=== PATIENT | female | born 1940 | race Caucasian/White ===

== ENCOUNTER 2020-08-13 15:04 | Emergency (ER) | payer OTHER ==
[~2020-08-13] VITALS: Ht 149.9 cm; Wt 81.6 kg
[2020-08-13 15:14] VITALS: BP_SYST 168
[2020-08-13 17:07] LABS: BASOPHILS % (AUTO) 0.4 % (0.0-2.0); EOSINOPHILS # (AUTO) 0.1 K/uL (0.0-0.4); EOSINOPHILS % (AUTO) 1.5 % (0.0-4.0); HEMOGLOBIN 11.7 g/dL (12.0-16.0); LYMPHOCYTES # (AUTO) 2.7 K/uL (1.0-5.5); LYMPHOCYTES % (AUTO) 37.4 % (20.5-51.5); MEAN CORPUSCULAR HEMOGLOBIN 32 pg (27-31); MEAN CORPUSCULAR HGB CONC 35 % (32-36); MEAN CORPUSCULAR VOLUME 93 fL (79.0-98.0); MONOCYTES # (AUTO) 0.6 K/uL (0.0-1.0); MONOCYTES % (AUTO) 8.4 % (1.7-9.3); NEUTROPHILS # (AUTO) 3.8 K/uL (1.8-7.7); NEUTROPHILS % (AUTO) 52.3 % (40.0-70.0); PLATELET COUNT (AUTO) 203 K/uL (130-430); RED BLOOD CELL COUNT(AUTO) 3.67 MIL/uL (4.2-6.2); RED CELL DISTRIBUTION WIDTH 13.4 % (9.0-15.0); WHITE BLOOD COUNT (AUTO) 7.2 K/uL (4.8-10.8)
[2020-08-13 17:18] LABS: ANION GAP 8 (5-15); CALCIUM 7.6 mg/dL (8.4-11.0); CHLORIDE 99 mmol/L (98-107); GLUCOSE 123 mg/dL (70-99); POTASSIUM 3.4 mmol/L (3.5-5.1); SODIUM SERUM 135 mmol/L (136-145); UREA NITROGEN, BLOOD 14 mg/dL (8-21)
[2020-08-13 17:20] LABS: PROTHROMBIN TIME 10.4 SECS (9.5-12.5)
[2020-08-13] MEDS ORDERED: IOHEXOL 350 mgI/mL, 150 ML INFUS..BTL IV ONE (17:29)
[2020-08-13 17:44] LABS: ALANINE AMINOTRANSFERASE 31 U/L (12-78); ASPARTATE AMINOTRANSFERASE 35 U/L (10-37); TOTAL BILIRUBIN 0.6 mg/dL (0.0-1.0)
[2020-08-13] MEDS ORDERED: LOVA20TA2 PO (17:52)
[2020-08-13] MEDS ORDERED: DEXTROMETHORPHAN PO (17:52)
[2020-08-13] MEDS ORDERED: BROMPHENIRAMINE PO (17:52)
[2020-08-13] MEDS ORDERED: MULT1CAP34 PO (17:52)
[2020-08-13] MEDS ORDERED: HYDC2.5% (17:52)
[2020-08-13] MEDS ORDERED: LATA7.5D BOTH EYES (17:52)
[2020-08-13] MEDS ORDERED: METF1000 PO (17:52)
[2020-08-13] MEDS ORDERED: GLIP10TA21 PO (17:52)
[2020-08-13] MEDS ORDERED: PSEUDOEPHEDRINE PO (17:52)
[2020-08-13] MEDS ORDERED: ACYC800T5 PO (17:52)
[2020-08-13] MEDS ORDERED: NAPR-690 PO (17:52)
[2020-08-13] MEDS ORDERED: BIOT10004 PO (17:52)
[2020-08-13] MEDS ORDERED: CHOL100038 (17:52)
[2020-08-13] MEDS ORDERED: GABA300T25 PO (17:52)
[2020-08-13] MEDS ORDERED: HYDR50TA4 PO (17:52)
[2020-08-13] MEDS ORDERED: DICL100G19 (17:52)
[2020-08-13] MEDS ORDERED: ATEN100T PO (17:52)
[2020-08-13] MEDS ORDERED: ASPI-1077 PO (17:52)
[2020-08-13] MEDS ORDERED: BENA40TA8 PO (17:52)
[2020-08-13] MEDS ORDERED: IBUP-1969 PO (17:52)
[2020-08-13] MEDS ORDERED: TRIAMCINOLONE (17:52)
[2020-08-13] MEDS ORDERED: hydrALAZINE HCL 20 MG/ML VIAL IVP ONE (19:00)
[2020-08-13] MEDS ORDERED: NS 500 ML IV ONE (20:30)
[2020-08-13 21:39] LABS: BILIRUBIN,URINE NEGATIVE (NEGATIVE); BLOOD, URINE NEGATIVE (NEGATIVE); CLARITY/URINE CLEAR (CLEAR); COLOR,URINE YELLOW (YELLOW); GLUCOSE,URINE NEGATIVE (NEGATIVE); KETONES,URINE NEGATIVE (NEGATIVE); LEUKOCYTE ESTERASE ,URINE NEGATIVE (NEGATIVE); NITRITE, URINE NEGATIVE (NEGATIVE); PROTEIN URINE NEGATIVE (NEGATIVE); UROBILINOGEN,URINE 0.2 (0.2-1.0)
[2020-08-14 01:30] VITALS: BP_SYST 162
[2020-08-14] MEDS ORDERED: hydrALAZINE HCL 20 MG/ML VIAL ONE (01:55)
[2020-08-14] MEDS ORDERED: hydrALAZINE HCL 20 MG/ML VIAL IVP ONE (02:00)
== END 2020-08-14 01:30 | disposition short-term general hospital (02) ==
LOC: SED 15:04
DX: G62.9 Polyneuropathy, unspecified (principal); I10 Essential (primary) hypertension; E11.9 Type 2 diabetes mellitus without complications; Z79.899 Other long term (current) drug therapy; Z88.0 Allergy status to penicillin; Z88.6 Allergy status to analgesic agent; Z88.8 Allergy status to other drugs, medicaments and biological substances; Z20.822 Contact with and (suspected) exposure to COVID-19
CPT/HCPCS: 36415; 70450; 70496; 71045; 76376; 80053; 81003; 82962; 84484; 85025; 85610; 85730; 86886; 86900; 86901; 87426; 93005; 96374; 99291; J0360 ×2; J7040; Q9967

== ENCOUNTER 2022-08-09 18:12 | Inpatient (IN) | payer OTHER, MEDICAID ==
[~2022-08-09] VITALS: Ht 152.4 cm; Wt 80.7 kg
[~2022-08-09 18:12] MED LIST: ACYC800T5 PO; ASPI-1077 PO; ATEN100T PO; BENA40TA89 PO; BIOT10004 PO; BROMPHENIRAMINE PO; CHOL100038; DEXTROMETHORPHAN PO; DICL100G19; GABA300T25 PO; GLIP10TA21 PO; HYDC2.5%; HYDR50TA4 PO; IBUP-1969 PO; LATA7.5D BOTH EYES; LOVA20TA2 PO; METF1000 PO; MULT1CAP34 PO; NAPR-690 PO; PSEUDOEPHEDRINE PO; TRIAMCINOLONE
[2022-08-09 18:13] VITALS: BP_SYST 214
[2022-08-09] MEDS ORDERED: NS 500 ML IV ONE (18:30)
[2022-08-09 18:55] LABS: BASOPHILS % (AUTO) 0.1 % (0.0-2.0); EOSINOPHILS % (AUTO) 0.1 % (0.0-4.0); HEMATOCRIT 38.9 % (36-48); HEMOGLOBIN 13.4 g/dL (12.0-16.0); LYMPHOCYTES % (AUTO) 12.6 % (20.5-51.5); MEAN CORPUSCULAR HEMOGLOBIN 33 pg (27-31); MEAN CORPUSCULAR HGB CONC 34 % (32-36); MEAN CORPUSCULAR VOLUME 95 fL (79.0-98.0); MONOCYTES # (AUTO) 0.4 K/uL (0.0-1.0); MONOCYTES % (AUTO) 5.4 % (1.7-9.3); NEUTROPHILS # (AUTO) 6.5 K/uL (1.8-7.7); NEUTROPHILS % (AUTO) 81.8 % (40.0-70.0); PLATELET COUNT (AUTO) 182 K/uL (130-430); RED BLOOD CELL COUNT(AUTO) 4.09 MIL/uL (4.2-6.2)
[2022-08-09 19:14] LABS: ALANINE AMINOTRANSFERASE 28 U/L (12-78); ALBUMIN 3.3 g/dL (3.4-4.8); ANION GAP 12 (5-15); ASPARTATE AMINOTRANSFERASE 35 U/L (10-37); CALCIUM 7.9 mg/dL (8.4-11.0); CHLORIDE 97 mmol/L (98-107); CREATININE 1.57 mg/dL (0.55-1.30); GLUCOSE 193 mg/dL (70-99); TOTAL BILIRUBIN 1.1 mg/dL (0.0-1.0); UREA NITROGEN, BLOOD 18 mg/dL (8-21)
[2022-08-09 19:16] LABS: ALCOHOL, BLOOD 4 mg/dL (<10)
[2022-08-09] MEDS ORDERED: ASPIRIN 81 MG TAB.CHEW PO ONE (20:15)
[2022-08-09] MEDS ORDERED: VIBE75TA PO (21:28)
[2022-08-09] MEDS ORDERED: CARB30DR14 BOTH EYES (21:28)
[2022-08-09] MEDS ORDERED: CALCIUM CARBONATE PO (21:28)
[2022-08-09] MEDS ORDERED: CICL90CR10 TP (21:28)
[2022-08-09] MEDS ORDERED: CYAN100010 SL (21:28)
[2022-08-09] MEDS ORDERED: ALLO100T PO (21:28)
[2022-08-09] MEDS ORDERED: MIRT-91 PO (21:28)
[2022-08-09] MEDS ORDERED: POTA-197 PO (21:28)
[2022-08-09] MEDS ORDERED: ACET-2634 PO (21:28)
[2022-08-09] MEDS ORDERED: LABETALOL HCL 20 MG/4 ML CARTRIDGE IVP ONE (21:30)
[2022-08-09] MEDS ORDERED: DEXTROSE 50% JECT 50 ML DISP.SYRIN IVP PRN (21:45)
[2022-08-09] MEDS ORDERED: MUPIROCIN 2% TOPICAL OINTMENT 22 GM NS PRN (21:45)
[2022-08-09] MEDS ORDERED: DOCUSATE SODIUM 100 MG CAPSULE PO PRN (21:45)
[2022-08-09] MEDS ORDERED: MORPHINE 2 MG/ML INJ. SYRINGE IVP PRN ×2 (21:45)
[2022-08-09] MEDS ORDERED: ONDANSETRON HCL 4 MG/2 ML VIAL IVP PRN (21:45)
[2022-08-09] MEDS ORDERED: ACETAMINOPHEN 325 MG TABLET PO PRN (21:45)
[2022-08-09] MEDS ORDERED: POTASSIUM CHLORIDE 20 MEQ TAB.PRT.SR PO PRN (21:45)
[2022-08-09 22:28] LABS: BILIRUBIN,URINE NEGATIVE (NEGATIVE); BLOOD, URINE 1+ (NEGATIVE); COLOR,URINE YELLOW (YELLOW); GLUCOSE,URINE 1+ (NEGATIVE); KETONES,URINE 1+ (NEGATIVE); LEUKOCYTE ESTERASE ,URINE TRACE (NEGATIVE); NITRITE, URINE NEGATIVE (NEGATIVE); PROTEIN URINE 2+ (NEGATIVE); UROBILINOGEN,URINE 0.2 (0.2-1.0)
[2022-08-09 22:34] LABS: CLARITY/URINE SLIGHTLY HAZY (CLEAR)
[2022-08-09 22:49] LABS: BACTERIA,URINE MODERATE /HPF (None Seen)
[2022-08-09 22:50] LABS: MUCUS,URINE None Seen /LPF (None Seen); YEAST,URINE Moderate /HPF (None Seen)
[2022-08-09 23:34] LABS: BARBITURATE, URINE NEGATIVE (NEG <=200); BENZODIAZEPINE, URINE NEGATIVE (NEG <=150); CANNABINOID, URINE NEGATIVE (NEG <=50); COCAINE, URINE NEGATIVE (NEG <=150); METHAMPHETAMINES SCREEN,URINE NEGATIVE (NEG <=500); OPIATE, URINE NEGATIVE (NEG <=100); PHENCYCLIDINE SCREEN,URINE NEGATIVE (NEG <=25); UR TRICYCLIC ANTIDEPRESSANTS NEGATIVE (NEG <=300); URINE AMPHETAMINE NEGATIVE (NEG <=500); URINE METHADONE NEGATIVE (NEG <=200); URINE OXYCODONE SCREEN NEGATIVE (NEG <=100); URINE PROPOXYPHENE SCREEN NEGATIVE (NEG <=300)
[2022-08-10 07:41] LABS: BASOPHILS % (AUTO) 0.2 % (0.0-2.0); EOSINOPHILS % (AUTO) 0.5 % (0.0-4.0); HEMATOCRIT 38.6 % (36-48); HEMOGLOBIN 13.3 g/dL (12.0-16.0); LYMPHOCYTES % (AUTO) 30.3 % (20.5-51.5); MEAN CORPUSCULAR HEMOGLOBIN 32 pg (27-31); MEAN CORPUSCULAR HGB CONC 34 % (32-36); MEAN CORPUSCULAR VOLUME 94 fL (79.0-98.0); MONOCYTES # (AUTO) 0.6 K/uL (0.0-1.0); MONOCYTES % (AUTO) 9.6 % (1.7-9.3); NEUTROPHILS % (AUTO) 59.4 % (40.0-70.0); PLATELET COUNT (AUTO) 181 K/uL (130-430); RED CELL DISTRIBUTION WIDTH 12.8 % (9.0-15.0); WHITE BLOOD COUNT (AUTO) 6.7 K/uL (4.8-10.8)
[2022-08-10 07:53] LABS: ANION GAP 10 (5-15); CALCIUM 7.7 mg/dL (8.4-11.0); CHLORIDE 96 mmol/L (98-107); CREATININE 1.46 mg/dL (0.55-1.30); GLUCOSE 152 mg/dL (70-99); UREA NITROGEN, BLOOD 19 mg/dL (8-21)
[2022-08-10] MEDS: MAGNESIUM SULFATE 50 ML IV PRN (08:31)
[2022-08-10 09:23] VITALS: BP_SYST 141
[2022-08-10 09:25] VITALS: BP_SYST 141
[2022-08-10] MEDS ORDERED: BRI.2% EACH EYE (09:44)
[2022-08-10] MEDS: ALLOPURINOL 100 MG TABLET (ZYLOPRIM) PO SCH (09:57)
[2022-08-10] MEDS: ATORVASTATIN 20 MG TABLET PO SCH (09:57)
[2022-08-10] MEDS: ASPIRIN 81 MG TAB.CHEW PO SCH (09:57)
[2022-08-10] MEDS: lisinopriL 20 MG TABLET PO SCH ×2 (09:58→21:46)
[2022-08-10] MEDS: HEPARIN SODIUM,PORCINE 5,000 UNITS/ML VIAL SUBCUT SCH ×2 (09:59→21:42)
[2022-08-10] MEDS: INSULIN LISPRO SLIDING SCALE 100 UNITS/ML, 3 ML VIAL (humaLOG) SUBCUT PRN ×2 (16:50→22:11)
[2022-08-10 20:00] VITALS: BP_SYST 165
[2022-08-11] VITALS: BP_SYST 163
[2022-08-11 06:52] LABS: BASOPHILS % (AUTO) 0.4 % (0.0-2.0); EOSINOPHILS # (AUTO) 0.1 K/uL (0.0-0.4); EOSINOPHILS % (AUTO) 2.5 % (0.0-4.0); HEMATOCRIT 36.4 % (36-48); HEMOGLOBIN 12.6 g/dL (12.0-16.0); LYMPHOCYTES # (AUTO) 1.9 K/uL (1.0-5.5); LYMPHOCYTES % (AUTO) 33.9 % (20.5-51.5); MEAN CORPUSCULAR HEMOGLOBIN 33 pg (27-31); MEAN CORPUSCULAR HGB CONC 35 % (32-36); MEAN CORPUSCULAR VOLUME 95 fL (79.0-98.0); MONOCYTES # (AUTO) 0.5 K/uL (0.0-1.0); MONOCYTES % (AUTO) 9.4 % (1.7-9.3); NEUTROPHILS % (AUTO) 53.8 % (40.0-70.0); PLATELET COUNT (AUTO) 172 K/uL (130-430); RED BLOOD CELL COUNT(AUTO) 3.85 MIL/uL (4.2-6.2); WHITE BLOOD COUNT (AUTO) 5.5 K/uL (4.8-10.8)
[2022-08-11 07:09] LABS: ANION GAP 10 (5-15); CALCIUM 7.9 mg/dL (8.4-11.0); CHLORIDE 98 mmol/L (98-107); CREATININE 1.41 mg/dL (0.55-1.30); GLUCOSE 117 mg/dL (70-99); UREA NITROGEN, BLOOD 23 mg/dL (8-21)
[2022-08-11 07:30] VITALS: BP_SYST 167
[2022-08-11] MEDS: ASPIRIN 81 MG TAB.CHEW PO SCH (10:18)
[2022-08-11] MEDS: ALLOPURINOL 100 MG TABLET (ZYLOPRIM) PO SCH (10:18)
[2022-08-11] MEDS: ATORVASTATIN 20 MG TABLET PO SCH (10:19)
[2022-08-11] MEDS: lisinopriL 20 MG TABLET PO SCH ×2 (10:20→20:45)
[2022-08-11] MEDS: HEPARIN SODIUM,PORCINE 5,000 UNITS/ML VIAL SUBCUT SCH ×2 (10:24→20:44)
[2022-08-11 11:53] VITALS: BP_SYST 169
[2022-08-11] MEDS: INSULIN LISPRO SLIDING SCALE 100 UNITS/ML, 3 ML VIAL (humaLOG) SUBCUT PRN ×2 (13:00→21:01)
[2022-08-11 17:30] VITALS: BP_SYST 169
[2022-08-11 22:34] VITALS: BP_SYST 179
[2022-08-12 00:41] VITALS: BP_SYST 140
[2022-08-12] MEDS: MAGNESIUM SULFATE 50 ML IV PRN (04:56)
[2022-08-12 06:51] LABS: ANION GAP 10 (5-15); CALCIUM 8.2 mg/dL (8.4-11.0); CHLORIDE 98 mmol/L (98-107); CREATININE 1.41 mg/dL (0.55-1.30); GLUCOSE 133 mg/dL (70-99); UREA NITROGEN, BLOOD 25 mg/dL (8-21)
[2022-08-12 07:58] LABS: BASOPHILS % (AUTO) 0.4 % (0.0-2.0); EOSINOPHILS # (AUTO) 0.1 K/uL (0.0-0.4); EOSINOPHILS % (AUTO) 2.5 % (0.0-4.0); HEMATOCRIT 37.3 % (36-48); HEMOGLOBIN 12.9 g/dL (12.0-16.0); LYMPHOCYTES # (AUTO) 1.8 K/uL (1.0-5.5); LYMPHOCYTES % (AUTO) 33.1 % (20.5-51.5); MEAN CORPUSCULAR HEMOGLOBIN 33 pg (27-31); MEAN CORPUSCULAR HGB CONC 35 % (32-36); MEAN CORPUSCULAR VOLUME 95 fL (79.0-98.0); MONOCYTES # (AUTO) 0.6 K/uL (0.0-1.0); MONOCYTES % (AUTO) 11.3 % (1.7-9.3); NEUTROPHILS # (AUTO) 2.9 K/uL (1.8-7.7); NEUTROPHILS % (AUTO) 52.7 % (40.0-70.0); PLATELET COUNT (AUTO) 176 K/uL (130-430); RED BLOOD CELL COUNT(AUTO) 3.94 MIL/uL (4.2-6.2); RED CELL DISTRIBUTION WIDTH 13.3 % (9.0-15.0); WHITE BLOOD COUNT (AUTO) 5.4 K/uL (4.8-10.8)
[2022-08-12 08:07] VITALS: BP_SYST 198
[2022-08-12] MEDS: ASPIRIN 81 MG TAB.CHEW PO SCH (08:29)
[2022-08-12] MEDS: ATORVASTATIN 20 MG TABLET PO SCH (08:30)
[2022-08-12] MEDS: lisinopriL 20 MG TABLET PO SCH (08:30)
[2022-08-12] MEDS: ALLOPURINOL 100 MG TABLET (ZYLOPRIM) PO SCH (08:30)
[2022-08-12] MEDS: HEPARIN SODIUM,PORCINE 5,000 UNITS/ML VIAL SUBCUT SCH (08:31)
== END 2022-08-12 10:00 | disposition left against medical advice (07) | DRG 305 ==
LOC: SED 18:12 → STU 20:46
PROVIDERS: ADMIT Family Medicine; ATTEND Family Medicine
PROC: 4A00X4Z Measurement of Central Nervous Electrical Activity, External Approach (ICD-10-PCS; principal; 2022-08-11)
DX: I16.0 Hypertensive urgency (principal); G45.9 Transient cerebral ischemic attack, unspecified; E44.1 Mild protein-calorie malnutrition; Z20.822 Contact with and (suspected) exposure to COVID-19; Z88.0 Allergy status to penicillin; Z88.8 Allergy status to other drugs, medicaments and biological substances; Z79.899 Other long term (current) drug therapy; Z79.1 Long term (current) use of non-steroidal anti-inflammatories (NSAID); Z79.82 Long term (current) use of aspirin; E11.22 Type 2 diabetes mellitus with diabetic chronic kidney disease; N18.9 Chronic kidney disease, unspecified
CPT/HCPCS: 36415; 70450-TC; 70551; 71045; 76376; 80048; 80053; 80307; 81000; 82140; 82962; 83735; 84484; 85025; 87086; 93005; 95816; 96361; 96374; 97110-GP; 97112-GP; 97116-GP; 97530-GP; 99291; 99292; G0378; G0482; J1644; J3475